=== PATIENT | female | born 1995 | race African-American/Black ===

== ENCOUNTER 2018-01-06 21:56 | Emergency (ER) | payer OTHER ==
[2018-01-06] MEDS ORDERED: ALPRAZolam TAB* 0.5 MG PO ONE (22:21)
[2018-01-06 22:48] VITALS: BP 114/86
--- NOTE | 2018-01-06 22:56 | ED ---
Rosette Wilkinson Gabriel, scribed for Luisito Elder MD on 01/06/18 at 2219 . Complex/Multi-Sys Presentation - HPI Summary HPI Summary: This patient is a 22 year old F presenting to [facility] accompanied by her peer with a chief complaint of sleep deprivation. Pt states she hasnt really slept in two days and has been drinking caffeine. The patient rates the pain 1/10 in severity. Patient reports mental fogginess. Patient denies SI, HI, and depression. She ran out of [employer] a month ago. - History Of Current Complaint Chief Complaint: EDGeneral Time Seen by Provider: 01/06/18 22:11 Hx Obtained From: Patient Onset/Duration: Still Present Timing: Constant Severity Currently: Mild Severity Initially: Moderate Associated Signs And Symptoms: Positive: Other - mental fogginess and lack of sleep - Allergies/Home Medications Allergies/Adverse Reactions: Allergies Allergy/AdvReac Type Severity Reaction Status Date / Time No Known Allergies Allergy Verified 02/04/15 01:36 PMH/Surg Hx/FS Hx/Imm Hx Endocrine/Hematology History: Reports: Hx Anemia Cardiovascular History: Denies: Hx Aneurysm Respiratory History: Denies: Hx Chronic Obstructive Pulmonary Disease (COPD) GI History: Denies: Hx Cirrhosis, Hx Crohn's Disease Sensory History: Reports: Hx Contacts or Glasses Opthamlomology History: Reports: Hx Contacts or Glasses Psychiatric History: Reports: Hx Depression Denies: Hx Eating Disorder, Hx of Violent Episodes Against Others Infectious Disease History: No Infectious Disease History: Denies: Hx Clostridium Difficile, Hx Human Immunodeficiency Virus (HIV), Hx of Known/Suspected MRSA, Hx Shingles, Hx Tuberculosis, Traveled Outside the [place] in Last 30 Days - Family History Known Family History: Negative: Renal Disease, Respiratory Disease, Seizure Disorder - Social History Alcohol Use: None Substance Use Type: Reports: None Smoking Status (MU): Never Smoked Tobacco Review of Systems Positive: Other - lack of sleep Neurological: Other - mental fogginess Positive: Other - NEGATIVE SI AND HI . Negative: Depressed All Other Systems Reviewed And Are Negative: Yes Physical Exam - Summary Physical Exam Summary: VITAL SIGNS: Reviewed. GENERAL: Patient is a well-developed and nourished female who is lying comfortable in the stretcher. Patient is not in any acute respiratory distress. HEAD AND FACE: No signs of trauma. No ecchymosis, hematomas or skull depressions. No sinus tenderness. EYES: PERRLA, EOMI x 2, No injected conjunctiva, no nystagmus. EARS: Hearing grossly intact. Ear canals and tympanic membranes are within normal limits. MOUTH: Oropharynx within normal limits. NECK: Supple, trachea is midline, no adenopathy, no JVD, no carotid bruit, no c- spine tenderness, neck with full ROM. CHEST: Symmetric, no tenderness at palpation LUNGS: Clear to auscultation bilaterally. No wheezing or crackles. CVS: Regular rate and rhythm, S1 and S2 present, no murmurs or gallops appreciated. ABDOMEN: Soft, non-tender. No signs of distention. No rebound no guarding, and no masses palpated. Bowel sounds are normal. EXTREMITIES: FROM in all major joints, no edema, no cyanosis or clubbing. NEURO: Alert and oriented x 3. No acute neurological deficits. Speech is normal and follows commands. SKIN: Dry and warm Triage Information Reviewed: Yes Vital Signs On Initial Exam: Initial Vitals Temp Pulse Resp BP Pulse Ox 98.7 F 85 18 144/86 100 01/06/18 21:58 01/06/18 21:58 01/06/18 21:58 01/06/18 21:58 01/06/18 21:58 Vital Signs Reviewed: Yes Diagnostics - Vital Signs Vital Signs Temp Pulse Resp BP Pulse Ox 01/06/18 21:58 98.7 F 85 18 144/86 100 - Laboratory Lab Statement: Any lab studies that have been ordered have been reviewed, and results considered in the medical decision making process. Complex Multi-Symp Course/Dx Assessment/Plan: This patient is a 22 year old F presenting to [facility] accompanied by her peer with a chief complaint of sleep deprivation. Pt states she hasnt really slept in two days and has been drinking caffeine. The patient rates the pain 1/10 in severity. Patient reports mental fogginess. Patient denies SI, HI, and depression. She ran out of [facility] a month ago. In the ED course the patient was given Xanax. Patient will be discharged with prescription for Xanax and follow up from physician referral center. The patient is agreeable with this plan. - Diagnoses Provider Diagnoses: Insomnia Discharge - Discharge Plan Condition: Stable Disposition: HOME Prescriptions: ALPRAZolam TAB* [Xanax TAB*] 0.5 mg PO BEDTIME PRN #10 tab MDD 1 PRN Reason: Insomnia Patient Education Materials: Insomnia (ED) Referrals: [facility] [Outside] - 4 Days Additional Instructions: RETURN TO EMERGENCY DEPARTMENT FOR ANY NEW OR WORSENING SYMPTOMS The documentation as recorded by the Rosette mishra Gabriel accurately reflects the service I personally performed and the decisions made by me, Luisito Elder MD.
== END 2018-01-06 22:48 | disposition home or self-care (01) ==
LOC: ED 21:56
DX: G47.00 Insomnia, unspecified (principal)
CPT/HCPCS: 99282; A9270-GY

== ENCOUNTER 2018-02-11 05:20 | Emergency (ER) | payer OTHER ==
[2018-02-11] MEDS ORDERED: ALPRAZolam TAB* 0.5 MG PO ONE (05:52)
[2018-02-11 06:20] LABS: Hematocrit 36 % (35-47); Hemoglobin 12.2 g/dl (12.0-16.0); Mean Corpuscular HGB Conc 34 g/dl (31-36); Mean Corpuscular Hemoglobin 31 pg (27-31); Mean Corpuscular Volume 92 fL (80-97); Mean Platelet Volume 9.5 um3 (7.4-10.4); Platelet Count 237 10^3/ul (150-450); Red Blood Count 3.89 10^6/ul (4.0-5.4); Red Cell Distribution Width 13 % (10.5-15); White Blood Count 6.6 10^3/ul (3.5-10.8)
[2018-02-11 06:26] LABS: ABS Basophils 0 10^3/ul (0-0.2); ABS Eosinophils 0.2 10^3/ul (0-0.6); ABS Monocytes 0.6 10^3/ul (0-0.8); ABS Neutrophils 3.9 10^3/ul (1.5-7.7); ABS Nucleated RBC 0 10^3/ul; Eosinophil % 2.9 % (0-6); Lymphocyte % 29.5 % (25-47); Nucleated Red Blood Cells % 0.1
[2018-02-11 06:35] LABS: EGFR Non-African American 101.3 (>60)
[2018-02-11 08:14] VITALS: BP 120/67
--- NOTE | 2018-02-19 20:25 | ED ---
Sylvester Wilkinson Stephanie, scribed for Luisito Elder MD on 02/11/18 at 0556 . Complex/Multi-Sys Presentation - HPI Summary HPI Summary: The pt is a 23 y/o F presenting to the ED with c/o sleep disturbances that began on 02/07/18. The pt states she started Depakote ER for the first time on 02/06 and beginning on 02/07/18 she is not able to sleep. Symptoms include increased HR, CP, chest tightening and numbing of her UE. The pt denies SI and HI. - History Of Current Complaint Chief Complaint: EDGeneral Time Seen by Provider: 02/11/18 05:34 Hx Obtained From: Patient Onset/Duration: Sudden Onset, Lasting Days, Still Present Timing: Constant Severity Currently: Moderate Associated Signs And Symptoms: Positive: Chest Pain, Other - increased HR, chest tightening and numbing of her UE - Allergies/Home Medications Allergies/Adverse Reactions: Allergies Allergy/AdvReac Type Severity Reaction Status Date / Time No Known Allergies Allergy Verified 02/11/18 05:26 Home Medications: Home Medications Junel 1.5 mg-30 Mcg Tablet 1 tab PO DAILY 02/11/18 [History Confirmed 02/11/18] Multivitamin 1 tab PO DAILY 02/11/18 [History Confirmed 02/11/18] PMH/Surg Hx/FS Hx/Imm Hx Endocrine/Hematology History: Reports: Hx Anemia Cardiovascular History: Denies: Hx Aneurysm Respiratory History: Denies: Hx Chronic Obstructive Pulmonary Disease (COPD) GI History: Denies: Hx Cirrhosis, Hx Crohn's Disease Sensory History: Reports: Hx Contacts or Glasses Opthamlomology History: Reports: Hx Contacts or Glasses Psychiatric History: Reports: Hx Depression Denies: Hx Eating Disorder, Hx of Violent Episodes Against Others - Surgical History Surgery Procedure, Year, and Place: NONE - Immunization History Date of Influenza Vaccine: has not recieved Infectious Disease History: No Infectious Disease History: Denies: Hx Clostridium Difficile, Hx Human Immunodeficiency Virus (HIV), Hx of Known/Suspected MRSA, Hx Shingles, Hx Tuberculosis, Traveled Outside the [place] in Last 30 Days - Family History Known Family History: Negative: Renal Disease, Respiratory Disease, Seizure Disorder - Social History Occupation: Student Lives: Dormitory/Roommates Alcohol Use: Rare Hx Substance Use: No Substance Use Type: Reports: None Hx Tobacco Use: No Smoking Status (MU): Never Smoked Tobacco Have You Smoked in the Last Year: No Review of Systems Positive: Other - sleep disturbance Positive: Chest Pain, Other - increased HR, chest tightness Positive: Numbness - UE bilaterally Positive: Anxious, Other - Denies SI and HI All Other Systems Reviewed And Are Negative: Yes Physical Exam - Summary Physical Exam Summary: VITAL SIGNS: Reviewed. GENERAL: Patient is a well-developed and nourished FEMALE who is lying comfortable in the stretcher. Patient is not in any acute respiratory distress. HEAD AND FACE: No signs of trauma. No ecchymosis, hematomas or skull depressions. No sinus tenderness. EYES: PERRLA, EOMI x 2, No injected conjunctiva, no nystagmus. EARS: Hearing grossly intact. Ear canals and tympanic membranes are within normal limits. MOUTH: Oropharynx within normal limits. NECK: Supple, trachea is midline, no adenopathy, no JVD, no carotid bruit, no c- spine tenderness, neck with full ROM. CHEST: Symmetric, no tenderness at palpation LUNGS: Clear to auscultation bilaterally. No wheezing or crackles. CVS: Regular rate and rhythm, S1 and S2 present, no murmurs or gallops appreciated. ABDOMEN: Soft, non-tender. No signs of distention. No rebound no guarding, and no masses palpated. Bowel sounds are normal. EXTREMITIES: FROM in all major joints, no edema, no cyanosis or clubbing. NEURO: Alert and oriented x 3. No acute neurological deficits. Speech is normal and follows commands. PSYCH: anxious Triage Information Reviewed: Yes Vital Signs On Initial Exam: Initial Vitals Temp Pulse Resp BP Pulse Ox 97.8 F 87 16 139/77 100 02/11/18 05:22 02/11/18 05:22 02/11/18 05:22 02/11/18 05:22 02/11/18 05:22 Vital Signs Reviewed: Yes Diagnostics - Vital Signs Vital Signs Temp Pulse Resp BP Pulse Ox 02/11/18 05:22 97.8 F 87 16 139/77 100 - Laboratory Result Diagrams: 02/11/18 06:06 02/11/18 06:06 Lab Statement: Any lab studies that have been ordered have been reviewed, and results considered in the medical decision making process. Complex Multi-Symp Course/Dx Course Of Treatment: The pt is a 23 y/o F presenting to the ED with c/o sleep disturbances that began on 02/07/18. The pt states she started Depakote ER for the first time on 02/06/18 and beginning on 02/07/18 she is not able to sleep. Symptoms include increased HR, CP, chest tightening and numbing of her UE. The pt denies SI and HI. - Diagnoses Provider Diagnoses: Anxiety Discharge - Sign-Out/Discharge Documenting (check all that apply): Discharge - Discharge Plan Condition: Stable Disposition: HOME Patient Education Materials: Anxiety (ED) Referrals: [facility] [Z.[email or web address], APPLICATION, OTHER] - 2 Days Additional Instructions: RETURN TO EMERGENCY DEPARTMENT FOR ANY NEW OR WORSENING SYMPTOMS The documentation as recorded by the Sylvester mishra Stephanie accurately reflects the service I personally performed and the decisions made by , Luisito Elder MD.
== END 2018-02-11 08:13 | disposition home or self-care (01) ==
LOC: ED 05:20
DX: F41.9 Anxiety disorder, unspecified (principal); R07.9 Chest pain, unspecified
CPT/HCPCS: 36415; 80053; 80164; 83735; 85025; 99282; A9270-GY